=== PATIENT | male | born 1975 | race Caucasian/White ===

== ENCOUNTER 2022-01-28 02:13 | Emergency (ER) | payer SELFPAY ==
[2022-01-28 02:25] VITALS: BP 156/98; PULSE 92; RESP 18; TEMP 36.7; O2SAT 98; BMI 26.6
--- NOTE | 2022-01-28 03:42 | W.ED.SKABFB ---
HPI - Skin/Abscess/Foreign Bdy General: Chief complaint: Skin/Abscess/Foreign Body Stated complaint: fever, Left arm swollen Time Seen by Provider: 01/28/22 03:33 History of Present Illness: 46-year-old male presents with multiple small abscesses on his bilateral hands but mainly on his left hand and little bit on his left arm. He reports that he felt like his arm was little bit swollen. He is got some purulent drainage noted multiple small little abscesses. He not sure if maybe he scratched them up while he was cutting wood or something. Most have been opened and are draining. Patient does not claim any nausea vomiting, chills, or diarrhea. Associated symptoms: Deny chills, nausea or vomiting Review of Systems Const: Denies: chills or body aches Card: Denies: chest pain or palpitations Resp: Denies: dyspnea or productive cough GI: Denies: abdominal pain, nausea, vomiting or diarrhea Musc: Reports: other (Please see HPI) Skin/Breast: Reports: sores Neuro: Denies: headache(s) or dizziness Physical Exam Const: COMMON NORMALS: no acute distress, patient oriented x3 and alert Resp: COMMON NORMALS: normal respiratory effort, No use of accessory muscles and clear to auscultation bilaterally AUSCULTATION: clear to auscultation bilaterally Cardio: COMMON NORMALS: regular rate and regular rhythm RATE: regular rate RHYTHM: regular rhythm GI: COMMON NORMALS: non-tender INSPECTION: Yes normal to inspection Extremity: COMMON NORMALS: full ROM and capillary refill normal Neuro: COMMON NORMALS: patient oriented x3, moves all extremities and no focal motor deficits SENSORIUM/ORIENTATION: Yes alert Psych: COMMON NORMALS: mental status grossly normal, Normal thought process present, cooperative and normal affect THOUGHT PROCESS: Normal thought process present Skin: NARRATIVE SKIN EXAM: Multiple small abscesses/folliculitis mainly on left hand and wrist with a few on the right with purulent drainage Course Vital Signs: Vital signs: Vital Signs Temperature 98.1 F 01/28/22 02:25 Pulse Rate 92 01/28/22 02:25 Respiratory Rate 18 01/28/22 02:25 Blood Pressure 156/98 01/28/22 02:25 Pulse Oximetry 98 01/28/22 02:25 Oxygen Delivery Me thod 01/28/22 02:25 MDM - Skin/Abscess/Foreign Bdy Medicial Decision Making Patient with multiple small abscesses over mainly his left hand and wrist bilirubin on his right. There is no abscess that needs to be I&D. Patient will be started on Bactrim. He needs to keep it clean with warm soapy water and can try Hibiclens. Patient should follow-up with her primary care provider as needed. Patient is stable and discharged home Discharge Plan Discharge Patient Disposition: Home Clinical Impression: Abscess of skin or subcutaneous tissue Qualifiers: Site of cutaneous abscess of extremity: hand Laterality: left Condition: Stable Prescriptions: New Bactrim DS 800-160 mg tablet 1 tab PO BID 10 Days Qty: 20 0RF Discharge Orders: Discharge ED (Routine); Ordered 01/28/22 Ordered By: Keshav Melendez Discharge Diet: Usual diet Discharge Activity: Resume usual activity Patient Instructions: Abscess (ED), Opioid Safety, Pain Management Activity Restrictions/Additional Instructions: Keep wound clean with warm soapy water and Hibiclens vehicle and equipment cleaner. Hibiclens is available at [facility] or other pharmacies Follow-up with your primary care provider in 1 week to have your wounds rechecked Coding Level of Care Code ED Historical Archeologist for Chg Fwd Exam Detailed
== END 2022-01-28 04:04 | disposition home or self-care (01) ==
PROVIDERS: Emergency Provider Student in an Organized Health Care Education/Training Program
DX: L02.512 Cutaneous abscess of left hand (principal)
CPT/HCPCS: 87070; 87075; 87077; 87186; 87205; 99283